=== PATIENT | male | born 1980 | race Caucasian/White ===

== ENCOUNTER → 2017-06-27 | Outpatient (CLI) | payer OTHER | END | disposition home or self-care (01) | LOC: C.RDSM 17:08 | PROVIDERS: ATTEND Orthopaedic Surgery | DX: R52 Pain, unspecified (principal) ==

== ENCOUNTER 2017-07-19 04:57 | Observation (INO) | payer OTHER ==
--- NOTE | 2017-07-17 16:02 | History and Physical ---
History & Physical Date of Service Jul 17, 2017. History & Physical CHIEF COMPLAINT: Right knee pain/instability. HISTORY OF PRESENT ILLNESS: This 36-year-old male presents to the clinic today from [facility] for a preoperative examination. The patient states that on 11/24 he was playing basketball at the [facility] where he [facility], came down awkwardly on his right knee, had buckling sensation and was unable to bear weight for several weeks and had to use crutches to ambulate. He states that after a few weeks he was able to bear weight without the use of crutches but still feels instability and has intermittent swelling. The patient states that this injury is affecting his daily life and he would like to proceed with surgical intervention. PAST SURGICAL HISTORY: None. PAST MEDICAL HISTORY: None. FAMILY HISTORY: Noncontributory. ALLERGIES: The patient has no known drug allergies. CURRENT MEDICATIONS TAKEN: None. SOCIAL HISTORY: The patient states that he was a half-pack per day smoker for 14 years but quit 2 months ago. He denies alcohol or illicit drug use. PHYSICAL EXAMINATION: Skin: The patient's skin is normal in appearance. No open skin lesions or discharge. Eyes: Pupils are equal and reactive to light and accommodating. Extraocular movements are intact. Throat: Posterior oropharynx clear with absence of edema, erythema or exudate. Cardiovascular exam: The patient has a regular rate and rhythm with no murmurs or gallops appreciated. Lungs: Auscultation of the lung flores reveals clear breath sounds throughout with no wheezing, rales or rhonchi. Abdomen is nonobese, nondistended, nontender with normoactive bowel sounds. Extremities: Right knee , the patient is able to extend to 0 degrees and flex to 98 degrees. The patient has a positive Anjali test and anterior drawer sign in the right knee, tenderness over the lateral collateral ligament with varus laxity. There is no edema, erythema, ecchymosis, warmth, or palpable bony deformity. No valgus laxity. Negative posterior drawer sign. His patella is freely mobile. He has no crepitation with active or passive range of motion. Does experience some lateral joint line tenderness when the knee is palpated in a flexed position. Otherwise, he is neurovascularly intact in the right lower extremity. His peripheral pulses are palpable and he has no open skin areas or discharge appreciated. DIAGNOSIS: Right knee ACL and LCL tears. PROCEDURE: Right knee ACL and posterior lateral corner reconstruction with allograft; arthroscopic partial medial meniscectomy versus repair. RADIOGRAPHIC IMAGING: MRI obtained in May shows a complete LCL midsubstance tear, complete ACL rupture and a medial meniscal horizontal type tear along the anterior horn. PLAN: The patient is scheduled to undergo this procedure at the [facility] with 23-hour observation on May. Risks and complications of the surgery were explained to the patient such as infection , bleeding, pain, scarring, nerve and blood vessel damage, weakness, wound problems, stiffness, incomplete relief of symptoms, heart attack, stroke, , hardware failure, graft rupture, arthritis, blood clots, embolism, peroneal nerve palsy, foot drop and possible reaction to the allograft material. The patient understood the risks that were explained to him by Dr. Gallo on June 27 and informed consent was signed at that time to proceed with surgery. At this point, there is no need for any preoperative medical clearance or testing. The patient was provided with prescriptions for [place] 5/325 for pain control as well as for aspirin 81 mg to take daily for 30 days postoperatively and use GILLES stockings for DVT prophylaxis. I also gave him a prescription for naproxen 500 mg to take twice daily for pain control as well as Tylenol 500 mg 2 tabs every 6 hours as needed for pain control. He states that he will present these to the pharmacy and medical staff at [facility]. I also provided an order for crutches that they will provide to him and he will bring with him on the day of surgery. I instructed him that he will be in a postoperative knee brace locked in extension with no weightbearing for 6 weeks postoperatively. The patient is scheduled for a 2-week postoperative followup with myself on August 01, 2017 at 10:30 in the morning. The patient will have an appointment in our PT clinic on July 24 at 10:00 a.m. I also provided an order for physical therapy that he can obtain at the half-way 2-3 times weekly for up to 8 weeks. The patient was advised that he will most likely be held in the [facility] for several days after the procedure for administration of pain control medications. Once his pain is controlled and he can use naproxen and Tylenol, he will most likely be discharged back to his unit at the half-way. The patient verbalized understanding of all information provided during today's visit, thanked us for the care that he has received and states if he has questions or concerns that should arise prior to his surgery date, he will have medical staff at [facility] contact the clinic accordingly.
[2017-07-19] VITALS (8 sets, daily range): BP systolic 128–169; BP diastolic 72–99; PULSE 66–84; TEMP 36.5–37.1; O2SAT 94–100; Ht 188 cm; Wt 95.5 kg
[~2017-07-19] VITALS: Ht 188 cm; Wt 95.5 kg
[2017-07-19] MEDS ORDERED: LACTATED RINGER'S 1000ML 1,000 ML IV SCH ×2 (06:00)
[2017-07-19] MEDS ORDERED: CEFAZOLIN 2000MG IV PUSH 15 ML IV SCH (06:00)
[2017-07-19] MEDS ORDERED: BUPIVACAINE 0.5 % 5 MG/1 ML PF 10ML VIAL ONE (06:30)
[2017-07-19] MEDS ORDERED: FENTANYL CITRATE INJ 50 MCG/1 ML 2 ML VIAL IV PRN (06:30)
[2017-07-19] MEDS ORDERED: LABETALOL HCL IV 5 MG/ML 20ML IV PRN (06:30)
[2017-07-19] MEDS ORDERED: ONDANSETRON INJ 2 MG/ML 2 ML VIAL IV PRN ×2 (06:30→12:45)
[2017-07-19] MEDS ORDERED: HYDROmorphone INJ 2 MG/ML SYR/VIAL IV PRN (06:30)
[2017-07-19] MEDS ORDERED: EpHEDrine SULFATE INJ 50 MG/ML AMP IV PRN (06:30)
[2017-07-19] MEDS ORDERED: PROMETHAZINE HCL INJ 12.5 MG in SODIUM CHLORIDE 0.9% 50ML 50 ML IV PRN (06:30)
[2017-07-19] MEDS ORDERED: PHENYLEPHRINE 100MCG/ML 5ML SYR IV PRN (06:30)
[2017-07-19] MEDS ORDERED: ATROPINE SULFATE 0.1 MG/ML 5ML SYR IV PRN (06:30)
[2017-07-19] MEDS ORDERED: BUPIVACAINE 0.25% 30 ML VIAL ONE (06:31)
[2017-07-19] MEDS ORDERED: FENTANYL CITRATE INJ 50 MCG/1 ML 2 ML VIAL ONE (06:39)
[2017-07-19] MEDS ORDERED: MIDAZOLAM HCL 1 MG/ML 2ML VIAL ONE (06:39)
--- NOTE | 2017-07-19 06:40 | History & Physical Bridge Note ---
H&P Re-Evaluation Bridge Note: I have examined the patient, reviewed the History & Physical and in the interval since the performance of the History & Physical I have noted the following changes of clinical significance: No changes noted
[2017-07-19] MEDS ORDERED: ROPIVACAINE 0.5% 5 MG/ML 30 ML VIAL ONE (06:45)
[2017-07-19] MEDS ORDERED: LIDOCAINE/EPINEPHRINE 1% 20 ML VIAL ONE (06:46)
[2017-07-19] MEDS ORDERED: BUPIVACAINE 0.5 % 5 MG/1 ML MPF 30ML VIAL ONE (06:47)
[2017-07-19] MEDS ORDERED: BUPIVACAINE/EPINEPHRINE 0.5% MPF 1:200,000 30 ML VIAL ONE (06:47)
[2017-07-19] MEDS ORDERED: BACITRACIN 50000 UNIT VIAL ONE (07:30)
[2017-07-19] MEDS ORDERED: EpINEphrine HCL INJ 1 MG/ML 1ML SYRINGE ONE (07:30)
[2017-07-19] MEDS ORDERED: LIDOCAINE HCL 2% 2 ML VIAL (20MG/ML) ONE (08:32)
[2017-07-19] MEDS ORDERED: ROCURONIUM BROMIDE 10 MG/ML 5 ML VIAL IV ONE (08:32)
[2017-07-19] MEDS ORDERED: KETOROLAC TROMETHAMINE 30 MG/ML VIAL ONE (08:32)
[2017-07-19] MEDS ORDERED: PROPOFOL IV EMULSION 10 MG/ML 20 ML VIAL IV ONE (08:32)
[2017-07-19] MEDS ORDERED: HYDROmorphone INJ 2 MG/ML SYR/VIAL ONE (08:32)
[2017-07-19] MEDS ORDERED: LARYING-O-JET KIT (LTA) ONE (08:32)
[2017-07-19] MEDS ORDERED: NEOSTIGMINE METHYLSULFATE 5 MG/5 ML SYR ONE (08:32)
[2017-07-19] MEDS ORDERED: DEXAMETHASONE SOD INJ 4 MG/ML VIAL ONE (08:32)
[2017-07-19] MEDS ORDERED: GLYCOPYRROLATE INJ 0.2 MG/ML VIAL ONE (08:32)
[2017-07-19] MEDS ORDERED: ONDANSETRON INJ 2 MG/ML 2 ML VIAL ONE (08:32)
[2017-07-19] MEDS ORDERED: EpHEDrine SULFATE 50MG/5ML SYR ONE (09:44)
--- NOTE | 2017-07-19 11:30 | DIAGNOSTIC IMAGING REPORT ---
R KNEE 1 OR 2 VIEWS CLINICAL HISTORY: ACL repair. Fluoroscopy time: 34 seconds. FINDINGS: 21 fluoroscopic images of the right knee were submitted. Images demonstrate a trocar overlying the lateral tibial plateau. IMPRESSION: Fluoroscopy provided for intraoperative guidance of an ACL repair. Electronically signed by: Bird Samaniego M.D. 07/19/2017 11:29 AM Dictated Date/Time: 07/19/2017 11:28 AM
[2017-07-19] MEDS ORDERED: CEFAZOLIN SOD 1 GM VIAL ONE (11:32)
--- NOTE | 2017-07-19 12:16 | [facility] Post Operative Brief Note ---
Immediate Operative Summary Operative Date Jul 19, 2017. Pre-Operative Diagnosis Right Knee Anterior Cruciate Ligament and Lateral Collateral Ligament Tears Post-Operative Diagnosis same as preop Procedure(s) Performed Right Knee Arthroscopic assisted Anterior Cruciate Ligament and Posterolateral Corner Reconstructions with Allograft, Peroneal Nerve Neurolysis Surgeon Dr. Lam Finney Boiling House Hand Surgeon(s) Willard Sibley PA-C Estimated Blood Loss 100ml Findings Consistent with Post-Op Diagnosis Fluids (cc crystalloids) 1500 Specimens none per surgeon Drains None Anesthesia Type General Regional Complication(s) none Disposition Accompanied Pt To Recover: no Disposition: Recovery Room / PACU
--- NOTE | 2017-07-19 12:34 | [facility] Operative Report ---
Operative Report Operative Date Jul 19, 2017. Pre-Operative Diagnosis Right Knee Anterior Cruciate Ligament and Lateral Collateral Ligament Tears Post-Operative Diagnosis same as preop Procedure(s) Performed Right Knee Arthroscopic assisted Anterior Cruciate Ligament and Posterolateral Corner Reconstructions with Allograft, Peroneal Nerve Neurolysis Surgeon Dr. Lam Finney Loan Underwriter Surgeon(s) Willard Sibley PA-C Estimated Blood Loss 100ml Fluids 1500 Specimens none per surgeon Drains None Anesthesia Type General Regional Complication(s) none Disposition no Recovery Room / PACU Description of Procedure I was present during entire procedure and assisted with wound closure. Please see Dr. Finney procedure note for specifics of case. I attest to the content of the Intraoperative Record and any orders documented therein. Any exceptions are noted below.
[2017-07-19] MEDS ORDERED: DiphenhydrAMINE HCL 50 MG/ML VIAL IV PRN (12:45)
[2017-07-19] MEDS ORDERED: ALUMINUM/MAGNESIUM/SIMETH (MAALOX MAX) 30 ML UDC PO PRN (12:45)
[2017-07-19] MEDS ORDERED: MAGNESIUM HYDROXIDE SUSP 30 ML UDC PO PRN (12:45)
[2017-07-19] MEDS ORDERED: MoRPHine SULFATE 2 MG/ML CARP IV PRN (12:45)
[2017-07-19] MEDS ORDERED: METOCLOPRAMIDE HCL INJ 5 MG/ML 2 ML VIAL IV PRN (12:45)
--- NOTE | 2017-07-19 12:48 | Discharge Instructions ---
Discharge Instructions Date of Service Jul 19, 2017. Admission Reason for Admission: Right Knee Acl & Lcl Tears Discharge Discharge Diagnosis / Problem: Rt knee ACL and LCL tears Discharge Goals Goal(s): Decrease discomfort, Improve function, Increase independence Activity Recommendations Activity Limitations: as noted below Lifting Limitations: none Exercise/Sports Limitations: until after follow-up appointment May Resume Sexual Activity: when tolerated Shower/Bathe: tomorrow, keep incision dry Driving or Machine Use: No driving until cleared by orthopedic surgeon Weightbearing Status: Right non-weightbearing (with knee brace locked in extension and with Ambulatory aid (crutches)) . Instructions / Follow-Up Instructions / Follow-Up Post-operative Instructions Dear Patient and Family/Friends, Before you are discharged from the hospital, it is important to know what to expect when you get home after surgery. To that end, we have created this sheet of discharge instructions which covers many commonly asked questions. Make sure you go through this sheet in its entirety with your nurse before you are discharged. Please note that we will go over the specifics of your surgery and recovery when you return for your first post-operative visit. Sincerely, Dr. Finney Pain Expect to be in a fair amount of pain after surgery. Remember, our goal is not to eliminate your pain, but to make it tolerable. It is a good idea to stay ahead of your pain by taking the medications you were prescribed once you get home. Typically, the pain starts improving 3-7 days after surgery. You should start weaning off the narcotic pain medication (oxycodone, hydrocodone, hydromorphone, morphine) as soon as your pain improves. Please call our office if your pain is not adequately controlled. Ice Ice your operative site at least 5 times a day for 15-30 minutes at a time. Make sure you have a thin cloth between the ice or cooling unit and your skin to prevent vogt bite. This is especially important if you received a nerve block. Continue icing your operative site for the first 5-7 days after surgery , then as needed. Diet/Nausea/Vomiting Start by drinking clear liquids and eating crackers. If you can tolerate this, then you may resume your normal diet. If you feel nauseated or vomit, take Zofran/ondansetron (if prescribed). Please call our office if you have intractable nausea or vomiting, or, if after hours, you may go to the Emergency Room for help. Constipation Constipation is a common side effect of narcotic pain medication. If you have not had a bowel movement within 2 days after surgery, we recommend purchasing an over the counter laxative such as Milk of Magnesia, Dulcolax, or Miralax from a local pharmacy, and taking it as instructed. Call our clinic if any questions. Slings and Braces If you were placed in a sling or brace, it must be worn at all times, including sleep. You may remove your sling or brace for physical therapy, home exercises , and showering. The length of time you will be in your brace and range of motion restrictions depends on what surgery you had; these details will be reviewed at your first post-operative appointment. Nerve block The anesthesia team sometimes places a nerve block to help with post-operative pain control. This results in significant numbness and inability to move the extremity. The nerve block usually wears off in 8-12 hours, but sometimes can last up to 24 hours. Please call our office if you are still unable to move your extremity after 24 hours, unless you received a pain pump to take home. Nerve blocks typically wear off quickly, so start taking pain medication as soon as you start feeling soreness near your surgical site. Weight bearing and Range of Motion. Do not bear any weight through your operative extremity immediately after surgery. If you had upper extremity surgery, do not lift anything with that arm. If you are in a knee brace, keep it locked in place until your follow-up. We will discuss your weight bearing, range of motion, and lifting restrictions in detail at your first post-operative appointment. Continuous Passive Motion (CPM) Machine If you were prescribed a CPM machine, it will start after your first post- operative appointment, at which time we will give you instructions on the range of motion settings and duration of treatment Physical therapy You will be given a prescription for physical therapy or occupational therapy at your first post-operative appointment. Typically, patients start therapy within 1 week of surgery Wound care and showering We will inspect your wound at your first post-operative visit, and may do a dressing change at that time. Most patients will be in a water-proof dressing that is removed 14 days after surgery. It is normal to see some dried blood on the dressing. Do not remove your dressing, paper strips or sutures yourself unless you are given permission. Showering is allowed the day after surgery. Do not scrub or remove any dressings. The wound should not be submerged underwater (i.e. in a bathtub or pool) until 4 weeks after surgery GILLES stockings If you were given white stockings, these are to be worn at all times except to shower (on both legs) for the first 2 weeks after surgery. Driving You may not drive while taking narcotic pain medication or while in a cast, splint, sling or brace. You, the patient, need to make the final determination about when you are safe to drive, however, the earliest you may consider driving after surgery is below: Hand/Wrist/Elbow Surgery: 3 days Shoulder Surgery: 2 weeks Hip,/Knee/Ankle Surgery: 4 weeks Fracture repair: 6 weeks Return to Work Your return to work depends on what surgery was done and what type of work you do. Please bring any paperwork your employer needs completed to your first post -operative visit. Also, bring a description of your job duties, as this helps us to understand what risks you may face at work. Travel Avoid long distance travel (greater than 1 hour) in airplanes and cars for the first 6 weeks after surgery. If you must travel, you need to have a Doppler ultrasound done before you travel to rule out a blood clot in your legs. Follow-up You should have a follow-up appointment already scheduled 1-2 days after surgery. If not, please contact our office to make this appointment before you leave the hospital. When to call the office It is normal to have swelling and bruising in the limb that was operated on. This will improve with time. It is also normal to have fevers for the first 2 days after surgery. Reasons you should call your doctor include: Uncontrolled pain; Nausea, vomiting, or constipation that does not improve with medication; Fevers over 101.5, chills, sweats; Drainage or bleeding from the wound; Foul odor; Spreading areas of redness; Any other concerns Current Hospital Diet Patient's current hospital diet: Regular Diet Discharge Diet Recommended Diet: Regular Diet Procedures Procedures Performed: Right Knee Arthroscopic assisted Anterior Cruciate Ligament and Posterolateral Corner Reconstructions with Allograft, Peroneal Nerve Neurolysis Pending Studies Studies pending at discharge: no Medical Emergencies . Who to Call and When: Medical Emergencies: If at any time you feel your situation is an emergency, please call 911 immediately. . Non-Emergent Contact Non-Emergency issues call your: Primary Care Provider Call Non-Emergent contact if: you have a fever, temperature is above 101.5, your pain is not controlled, your pain is worsening, wound has increased drainage, you have any medication questions . "Provider Documentation" section prepared by Willard Sibley. . [place] Drug Monitoring Program Search Results: patient reviewed within database, no issues identified, see additional documentation
--- NOTE | 2017-07-19 13:03 | Anesthesiology Progress Note ---
Anesthesia Post Op Note Date & Time Jul 19, 2017 at 13:03 Vital Signs Pain Intensity: 0 Vital Signs Past 12 Hours Date Time Temp Pulse Resp B/P (MAP) Pulse Ox O2 Delivery O2 Flow Rate FiO2 07/19/17 12:55 78 13 143/85 100 Oxymask 10 07/19/17 12:45 65 15 178/78 100 Oxymask 10 07/19/17 12:36 36.0 73 12 153/95 100 Oxymask 10 07/19/17 05:42 37.1 66 20 142/99 99 Room Air Notes Mental Status: alert / awake / arousable, participated in evaluation Pt Amnestic to Procedure: Yes Nausea / Vomiting: adequately controlled Pain: adequately controlled Airway Patency, RR, SpO2: stable & adequate BP & HR: stable & adequate Hydration State: stable & adequate Anesthetic Complications: no major complications apparent Awake, doing well, pain controlled, VSS.
--- NOTE | 2017-07-19 13:31 | DIAGNOSTIC IMAGING REPORT ---
R KNEE 2 VIEWS ROUTINE CLINICAL HISTORY: Postop examination COMPARISON: None. DISCUSSION: No acute fractures are visualized. There are postsurgical changes evident. There is air within soft tissues consistent with recent surgery. The patient is in a brace. A sclerotic focus within the proximal tibia, likely relates to recent surgery. IMPRESSION: Postsurgical change. No acute fractures identified. Electronically signed by: David Fung M.D. 07/19/2017 1:30 PM Dictated Date/Time: 07/19/2017 1:27 PM
--- NOTE | 2017-07-19 14:12 | OPERATIVE REPORT ---
DATE OF OPERATION: 07/19/2017 PREOPERATIVE DIAGNOSES: Right knee lateral collateral ligament tear and anterior cruciate ligament tear, history of right peroneal nerve palsy, possible medial meniscus tear. POSTOPERATIVE DIAGNOSES: Same except for no medial meniscus tear. OPERATIONS PERFORMED: 1. Right knee arthroscopic assisted ACL reconstruction with bone patellar tendon bone allograft. 2. Right knee open lateral collateral and posterolateral corner reconstruction with Achilles tendon allograft. 3. Right knee Peroneal nerve neurolysis. SURGEON: Lam Finney MD SUPERVISOR CUSTOMER COMPLAINT SERVICE: Jyoti Sibley. ESTIMATED BLOOD LOSS: 100 mL. URINE OUTPUT: Not recorded. IV FLUIDS: 1500 mL crystalloid. SPECIMENS: None. COMPLICATIONS: None. IMPLANTS: Five Arthrex PEEK screws measuring 8 x 23, 8 x 28, 7 x 23, 6 x 23, and 6 x 28. INDICATIONS: Mr. Sarabia is a 36-year-old inmate who sustained an injury to his right knee playing basketball in the fall of 2017. He had a peroneal nerve palsy with a foot drop after this and was on crutches for several weeks. He gradually regained the ability to dorsiflex his foot and regained a loss of sensation that he had over the dorsal aspect of his foot. However, he continued to have instability in his knee with giving out episodes. He had an MRI that was performed demonstrating a tear of the LCL, posterolateral corner and ACL. There was some irregularity at the anterior horn of the medial meniscus on the MRI which was uncertain if this was a tear or not. I had a long discussion with him about the risks and benefits of surgery, alternatives to surgery and expected outcomes. After reviewing all these, he elected to proceed with surgery. All questions were answered. Informed consent was signed. OPERATIVE FINDINGS: Exam under anesthesia showed the patient have 2+ opening to a varus stress at both 0 and 30 degrees. He had a positive Anjali's test, negative posterior drawer test. Range of motion was from 0 to 145 degrees. Diagnostic arthroscopy findings were as follows: 1. The undersurface of patella was normal. 2. Trochlea was normal. 3. Medial and lateral gutters were free of any loose bodies. 4. Lateral compartment opened to an abnormal degree consistent with LCL tear. Lateral meniscus and cartilage of the lateral femoral condyle were intact. 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 5. The ACL was torn off the femur. The PCL was intact. 6. The medial compartment showed there to be some synovium overlying the anterior horn of the medial meniscus, but no medial meniscus tear. There were some grade 2 chondral changes to the medial tibial plateau. The medial femoral condyle was intact. The ACL was reconstructed with a bone patellar tendon bone allograft. His lateral collateral ligament and posterolateral corner were reconstructed with an Achilles allograft woven through the fibula with 2 bone tunnels in the femur at the LCL and the popliteus insertions, respectively. DESCRIPTION OF THE OPERATION: The patient was identified in the preoperative holding area where his surgical site was marked. In the operating room, the allografts were opened up and thawed. The allografts were prepared for a 10 mm bone patellar tendon bone allograft and a 9 mm bone plug on the Achilles. The patient was then brought back to the operating room and was placed in the operating room table and general anesthesia was administered. All bony prominences were padded. Perioperative antibiotics were administered. Exam under anesthesia was performed demonstrating the above findings. He was then prepped and draped in the normal sterile fashion. Prior to incision, a multidisciplinary timeout was called. All in the room were in agreement. We began by exsanguinating the limb with an Esmarch bandage. The tourniquet was inflated to 250 mmHg. The lateral approach to the femur was made first which was a hockey stick shaped incision that extended overlying the IT band to the lateral epicondyle and down to the anterior aspect of the fibular head. We dissected down through subcutaneous tissues raising a full-thickness fascial flap posteriorly. The peroneal nerve was identified just posterior to the biceps femoris. This was then dissected out and a neurolysis was performed. The peroneal nerve was encased in significant amounts of scar tissue. This was clearly consistent with his previous injury. It was freed up for a length of over [address] into its insertion of the lateral compartment musculature. Next, an incision was made approximately 1 cm above the tip of the fibula and the IT band. We dissected the tissues subperiosteally off the fibular head anteriorly and posteriorly. We then used the guidewire and the drill guide to place our Beath pin through the head of the fibula. Fluoroscopy was brought in. Some minor adjustments had to be made to optimize the position of the pin. Once this was complete, we then drilled with a 7 mm reamer and used the chamfer to open up the apertures of both ends of the fibular tunnel. Next, the second incision was made in the IT band at the level of the lateral epicondyle. We dissected down to the level of fascia. We then marked out the location of the LCL insertion and popliteus insertions. The tourniquet was then let down at 60 minutes. Next, the arthroscopic portion of the procedure was performed. A lateral viewing portal was created followed by a medial working portal under direct visualization. We then performed diagnostic arthroscopy revealing the above findings. Once the diagnostic arthroscopy was complete, the tourniquet was reinflated after being down for 10 minutes. The small area of synovium overlying the medial meniscus was debrided and the fat pad was resected so that we could visualize the ACL stump. The ACL stump was debrided with a 5.5 shaver. A small notchplasty was performed. We then placed the 7 mm offset reamer at the overtop position. The knee was brought into hyperflexion and a Beath pin was drilled out through the femur. We were happy with the position of the Beath pin. We then drilled our tunnel to a depth of 25 mm for a 20 mm bone plug allograft. Next, the knee was brought back to 90 degrees and the tibial tunnel was drilled with a 10 mm fully-fluted reamer. Soft tissue at the apertures of the tunnel was debrided. We then brought our graft up onto the field. The graft was then shuttled up into the knee and secured in the femoral tunnel with an 8 x 23 mm PEEK screw. Next, attention was turned back to the lateral aspect of the femur. The exit site of the sutures from the ACL tunnel were well away from our proposed tunnels for the popliteus and the LCL. We then placed a Beath pin at the site of the LCL insertion, about 3 mm posterior to the lateral epicondyle. We then measured 20 mm between here and the popliteus tendon insertion. We then brought in C-arm to confirm the position of our pins. The pins were slightly distal from their optimum position, so they were adjusted more proximally which again were slightly adjusted more proximally, and rechecked. We were happy with the position of our pins. We then drilled the popliteus tunnel with a 9 mm cannulated reamer to a depth of 23 mm for a 21 mm bone plug. We then removed the periosteum from this aperture and passed the passing suture out through the medial aspect of the knee. We then developed the interval between the IT band and the fibular head and pulled a passing suture through this interval up to the popliteus tunnel. The bone block on the Achilles tendon was then pulled into the popliteus tunnel and secured with a 7 x 23 mm PEEK screw. Excellent fixation was obtained. We then passed the tendinous portion of the Achilles graft deep to the IT band and through the posterior aspect of the fibular head, so the tendon came out the anterior aspect of the fibular head. This tendon was then brought up to the LCL pin, superficial to the popliteus tendon, but deep to the IT band. The knee was then brought through a full range of motion. There was some lengthening of the graft as it was brought towards into flexion and so we moved the LCL pin slightly more posteriorly until we reached the isometric point. We then cycled the graft 10 times holding max tension on the graft. The graft was then whipstitched for its terminal 25 mm from the Beath pin with a #2 Fiberloop and the remainder of the graft was excised. The graft was sized to 7 mm. We drilled the femoral tunnel at our LCL insertion to a depth of 40 mm. We then passed the graft up into the LCL tunnel and secured it with a 6 x 28 mm tenodesis screw. Excellent fixation was obtained. Finally, the graft was secured in the fibula tunnel with a 6 x 23 mm PEEK screw. At this point, the knee was brought out in full extension. He had good stability to varus stress at 0 and 30 degrees. We then fixed his ACL holding max tension on the ACL graft after we cycled it 10 times. We then placed an 8 x 28 mm PEEK screw in the tibial tunnel. Exam under anesthesia was repeated and his Anjali's tested was normal, which we were very happy with. The wound was then irrigated with copious amounts of normal saline. His two fascial incisions in the IT band that were more anteriorly located were closed with a running 0 Vicryl suture. The fascial incision overlying the peroneal nerve was left open so as to not cause any undue tension on the peroneal nerve. We then closed the deep dermis with 2-0 Vicryl. The skin was closed with running 3-0 Monocryl. Steri-Strips were applied followed by a sterile dressing. The patient was placed in a hinged knee brace that was molded into a slight valgus to protect the posterolateral corner reconstruction. The patient was awoken from anesthesia and transferred to the recovery room in stable condition. POSTOPERATIVE COURSE: Patient will be admitted to the hospital overnight for pain control and IV antibiotics. The brace will be worn locked in full extension for the next 3 weeks. He will be allowed to unlock the brace and move it from 0-90 degrees the first 2 weeks and then follow the rehabilitation protocol thereafter. He will be on aspirin for DVT prophylaxis. He is going to be nonweightbearing in the first 2 weeks and then partial weightbearing for the subsequent 6 weeks. Of note, the patient was examined in the recovery room and was noted to have intact peroneal nerve function, with ankle and toe dorsiflexion intact, although a sensory exam could not be obtained due to the effects of anesthesia. I attest to the content of the Intraoperative Record and any orders documented therein. Any exceptions are noted below. BOB
[2017-07-19] MEDS ORDERED: IV FLUIDS COMPLETED PRN (15:00)
[2017-07-19] MEDS: D5W AND 1/2NSS + 20MEQ KCL 1,000 ML IV SCH (15:28)
[2017-07-19] MEDS: CEFAZOLIN IV 2,000 MG in SYRINGE 0 ML IV SCH (15:29)
[2017-07-19] MEDS: ACETAMINOPHEN 500 MG TAB PO SCH ×2 (15:29→21:56)
[2017-07-19] MEDS ORDERED: NURSING DECISION MEDICATION ORDER SCH (18:00)
[2017-07-19] MEDS ORDERED: COUGH DROP (SUGAR FREE) LOZ 24 LOZ/1 BOX LOZ PRN (18:00)
[2017-07-19] MEDS: DOCUSATE SODIUM 100 MG CAP PO SCH (20:44)
[2017-07-19] MEDS: OXYCODONE HCL IR 5 MG TAB (IMMEDIATE RELEASE) PO PRN ×2 (20:45→21:55)
[2017-07-19] MEDS: CeleBREX 200 MG CAP PO SCH (20:46)
[2017-07-19] MEDS ORDERED: SENNA 8.6 MG TAB PO SCH (21:00)
[2017-07-20] MEDS: CEFAZOLIN IV 2,000 MG in SYRINGE 0 ML IV SCH (00:06)
[2017-07-20 00:15] VITALS: O2SAT 100
[2017-07-20] MEDS: D5W AND 1/2NSS + 20MEQ KCL 1,000 ML IV SCH ×2 (00:47→10:30)
[2017-07-20 02:57] VITALS: BP 115/63; PULSE 71; TEMP 37.6; O2SAT 99
[2017-07-20 07:05] VITALS: BP 134/81; PULSE 62; TEMP 36.9; O2SAT 98
[2017-07-20] MEDS: ACETAMINOPHEN 500 MG TAB PO SCH (07:20)
--- NOTE | 2017-07-20 08:08 | Anesthesiology Progress Note ---
Anesthesia Post Op Note Date & Time Jul 20, 2017 at 08:08 Vital Signs Pain Intensity: 0.0 Vital Signs Past 12 Hours Date Time Temp Pulse Resp B/P (MAP) Pulse Ox O2 Delivery O2 Flow Rate FiO2 07/20/17 07:15 Room Air 07/20/17 07:05 36.9 62 16 134/81 (98) 98 Room Air 07/20/17 02:57 37.6 71 16 115/63 (80) 99 Room Air 07/20/17 00:15 100 Room Air 2.0 07/19/17 22:47 36.8 79 16 135/72 (93) 94 Room Air Notes Mental Status: alert / awake / arousable, participated in evaluation Pt Amnestic to Procedure: Yes Nausea / Vomiting: adequately controlled Pain: adequately controlled Airway Patency, RR, SpO2: stable & adequate BP & HR: stable & adequate Hydration State: stable & adequate Anesthetic Complications: no major complications apparent
[2017-07-20] MEDS: CeleBREX 200 MG CAP PO SCH (08:49)
[2017-07-20] MEDS: DOCUSATE SODIUM 100 MG CAP PO SCH (08:49)
[2017-07-20] MEDS ORDERED: MULTIVITAMIN TAB PO SCH (09:00)
[2017-07-20] MEDS ORDERED: ASPIRIN 81 MG ECTAB PO SCH (09:00)
[2017-07-20] MEDS ORDERED: PANTOprazole SOD 40 MG TAB PO SCH (09:00)
[2017-07-20 10:04] VITALS: O2SAT 100
--- NOTE | 2017-07-20 11:00 | Orthopedic Progress Note ---
Orthopedic Progress Note Date of Service Jul 20, 2017. Subjective Post OP Day: 1 Reports: feeling well, pain controlled w PO medications, Denies: complaints, chest pain, SOB, nausea / vomiting, light headedness, calf pain, using CLINICAL ASSISTANT PROFESSOR Objective calves soft nontender, N/V intact, capillary refill less than 2 sec., dressing C /D/I, A&O x3, toes mobile, CMS intact Able to easily perform SLRT. No pain with resisted Dorsi/Plantar flexion of Rt foot. No paresthesia of peroneal nerve in Rt LE. Date Time Temp Pulse Resp B/P (MAP) Pulse Ox O2 Delivery O2 Flow Rate FiO2 07/20/17 09:13 36.9 62 16 98 Room Air 07/20/17 07:15 Room Air 07/20/17 07:05 36.9 62 16 134/81 (98) 98 Room Air 07/20/17 02:57 37.6 71 16 115/63 (80) 99 Room Air 07/20/17 00:15 100 Room Air 2.0 07/19/17 22:47 36.8 79 16 135/72 (93) 94 Room Air 07/19/17 19:49 36.7 72 18 137/78 (97) 100 Room Air 07/19/17 17:17 36.6 69 18 133/80 (97) 100 Nasal Cannula 2.0 07/19/17 16:16 36.7 77 18 133/75 (94) 100 Nasal Cannula 2.0 07/19/17 15:30 Nasal Cannula 2.0 07/19/17 15:12 36.7 79 18 128/79 (95) 100 Nasal Cannula 2.0 07/19/17 14:44 84 16 158/90 (112) 100 Nasal Cannula 2.0 07/19/17 14:10 36.5 67 16 169/82 (111) 100 Nasal Cannula 2.0 07/19/17 14:10 Nasal Cannula 2.0 07/19/17 14:10 100 Nasal Cannula 2.0 07/19/17 13:45 36.5 60 16 141/91 100 Nasal Cannula 2 07/19/17 13:35 71 18 151/88 100 Nasal Cannula 2 07/19/17 13:25 76 18 153/89 100 Nasal Cannula 2 07/19/17 13:15 67 14 154/91 100 Nasal Cannula 2 07/19/17 13:05 36.5 80 20 157/82 100 Nasal Cannula 2 07/19/17 12:55 78 13 143/85 100 Oxymask 10 07/19/17 12:45 65 15 178/78 100 Oxymask 10 07/19/17 12:36 36.0 73 12 153/95 100 Oxymask 10 Assessment & Plan Assessment: Day 1 s/p Rt knee posterolateral corner reconstruction and ACL reconstruction with allograft Plan: Non-wt bearing on Rt LE for 6 wks Brace locked in extension with ambulatory aide of crutches PT/OT 2-3x/wk at [facility] Post op f/u at [facility] in 2 wks Initial PT visit at [facility] on Sunday07/23/17 for dressing change. PO meds for pain control ASA and Teds for DVT Prophy Discharge after lunch today. Discharge Planning Discharge Planning: other ([facility]) Pain Management: [place], PO Tylenol, other (Naproxen) DVT Prophylaxis: TEDs, ASA Therapy: Physical Therapy, Occupational Therapy
--- NOTE | 2017-07-20 11:06 | Discharge Summary ---
Orthopedic Discharge Summary Admission Date/Reason Jul 19, 2017 at 12:44 Right Knee Acl & Lcl Tears. Discharge Date/Disposition Jul 20, 2017 Home ([facility]) Diagnosis Principal Diagnosis: Right knee ACL and LCL tears Procedure(s) Performed Right knee posterolateral corner LCL and ACL reconstruction Medication Reconciliation Patients was provided Rx's for Dewey 5/325 mg; Naproxen 500 mg, Tylenol 500 mg and ASA 81 mg as his preop appointment. No Rx for meds provided upon Discharge from hospital. Admission Physical Exam As per Admitting History & Physical. Hospital Course Uneventful 23 hr observation stay after undergoing Rt knee posterolateral corner LCL and ACL reconstruction surgery. Patient is pain free, able to perform SLRT, and NV intact in Rt LE. He is ready to be discharged back to [facility]. We will see him on Sunday in our PT department to provided him with rehab protocol and change is operative dressing. Discharge Instructions Please refer to the electronic Patient Visit Report (Discharge Instructions) for additional information.
[2017-07-20 11:09] VITALS: BP 132/82; PULSE 66; TEMP 37.2; O2SAT 100
== END 2017-07-20 13:25 ==
LOC: C.ACU 04:57 → C.3E 12:44 → ENRESERV 13:33
PROVIDERS: ADMIT Orthopaedic Surgery; ATTEND Orthopaedic Surgery
DX: S83.511A Sprain of anterior cruciate ligament of right knee, initial encounter (principal); S83.421A Sprain of lateral collateral ligament of right knee, initial encounter; X58.XXXA Exposure to other specified factors, initial encounter; Y93.67 Activity, basketball; Y92.149 Unspecified place in prison as the place of occurrence of the external cause; Z87.891 Personal history of nicotine dependence